=== PATIENT | female | born 1965 | race Caucasian/White ===

== ENCOUNTER 2024-04-29 07:11 | Day surgery (SDC) | payer OTHER, SELFPAY ==
[2024-04-29] MEDS: LACTATED RINGERS 1,000 ML 42 ML IV (07:29)
[2024-04-29 07:35] VITALS: BP 118/76; PULSE 76; RESP 16; TEMP 36.3; O2SAT 96
--- NOTE | 2024-04-29 08:17 | P.HP_ITS ---
History of Present Illness History of Present Illness Date Patient Seen: 04/29/24 Time Patient Seen: 08:17 Chief complaint: Screening Colonoscopy Narrative: Last scope several years ago. No symptoms, no family history for colon cancer [facility] Medical History Cervical spine pain Depression Anxiety Lumbar spine pain Surgical History Status post loop electrosurgical excision procedure (LEEP) of cervix (03/28/08) Family History Mother Diabetes mellitus Breast cancer Heart disease Father Alcoholism Grandmother Pacemaker Social History marital status: Smoking Status: Never smoker alcohol intake: current substance use type: does not use Meds Home Medications and Allergies Home Medications Medication Instructions Recorded Confirmed Type bupropion HCl 200 mg tablet,12 hr 200 mg PO BID #60 tabs 11/16/18 04/29/24 Rx sustained-release fluticasone propionate 50 2 spray intranasal BID #9.9 grams 11/16/18 04/29/24 Rx mcg/actuation nasal spray,suspension hydroxyzine pamoate 25 mg capsule 25 mg PO BEDTIME PRN insomnia #20 11/16/18 04/29/24 Rx caps olopatadine 0.1 % eye drops 1 drop EYE-BOTH BID #5 mL 11/16/18 04/29/24 Rx (Patanol) zolpidem 5 mg tablet 5 mg PO BEDTIME PRN insomnia #20 11/16/18 04/29/24 Rx tabs peg 3350-sod sulf,blqzh-ukr-bzw 1,000 ml PO DIRECTED #2,000 mL 03/18/24 04/29/24 Rx 178.7-7.3-0.5-1.12-0.9 gram oral soln (Suflave) Allergies Allergy/AdvReac Type Severity Reaction Status Date / Time No Known Drug Allergies Allergy Verified 11/16/18 15:35 Review of Systems Review of Systems ROS: Yes All systems reviewed with the patient and are negative except as ot herwise documented Exam Vital Signs (past 8 hours): - 04/29/24 07:35 Temperature 97.4 F L Pulse Rate 76 Respiratory Rate 16 Blood Pressure 118/76 Pulse Oximetry 96 Oxygen Delivery Method Room Air Oxygen Delivery Method Room Air Const General: cooperative, healthy appearing and comfortable Nutritional Appearance: average body habitus HENMT Head: normocephalic and atraumatic Ears: hearing grossly normal bilaterally Eyes Periorbital: periorbital findings normal Sclera: sclerae normal Neck Neck: trachea midline Resp Effort & Inspection: normal respiratory effort and able to speak in complete sentences Cardio Rate: regular rate Rhythm: regular rhythm GI Palpation: soft and No tender Skin General: turgor normal and No atrophy Neuro General: patient alert, patient awake and patient oriented x3 Cognition: normal cognition Psych Appearance: grossly normal Mental Status: mental status grossly normal Judgment: judgment good Assessment & Plan Assessment & Plan narrative: colon cancer screening with colonoscopy using anesthesia Time-Based Coding :: [TOTAL MINUTES] spent with patient and on the chart (including review of chart, obtaining history, exam, reviewing outside data, placing orders, documenting exam and treatment plan, and counseling patient) on [DATE].
--- NOTE | 2024-04-29 08:51 | PM.OP.COLON ---
Operative Date/Time/Diagnoses Date of procedure: 04/29/24 Time of procedure: 08:51 Pre-op diagnosis: Colon cancer screening Post-op diagnosis: same Procedure & Clinicians Study performed: Colonoscopy with anesthesia Same procedure as scheduled: Yes Indications: Colon cancer screening Surgeon: Monse Girard Procedure Notes Procedure in detail: Preop diagnosis: Colon cancer screening Postop diagnosis: Same Operative procedure: Colonoscopy with anesthesia Surgeon: Fany Girard MD Findings: Normal colonoscopy. No diverticulosis, no polyps, however poor bowel prep Procedure: Patient placed in a lateral position. Rectal exam performed showing normal tone no masses. Colonoscope inserted into the rectum and advanced to ileocecal valve with minimal difficulty. Insufflation extraction scope and the above findings. Retroflex was included in the rectum. Impression: Normal colonoscopy. No polyps identified. Plan: Repeat colonoscopy in 10 years unless otherwise indicated by change in clinical condition Specimen(s): none sent Complications: none Post-procedure Recommendations: Colonoscopy in 10 years
[2024-04-29 08:54] VITALS: BP 95/61; PULSE 74; RESP 13; TEMP 36.4; O2SAT 98
[2024-04-29 09:00] VITALS: BP 101/59; PULSE 73; RESP 20; O2SAT 96
[2024-04-29 09:08] VITALS: BP 102/63; PULSE 69; RESP 15; TEMP 37.2; O2SAT 98
== END 2024-04-29 09:30 | disposition home or self-care (01) ==
PROVIDERS: Family Provider Family Medicine; PCP Internal Medicine; Referring Provider Surgery; Visit Provider Surgery
PROC: 0DJD8ZZ Inspection of Lower Intestinal Tract, Via Natural or Artificial Opening Endoscopic (ICD-10-PCS; CPT 45378; principal; 2024-04-29 08:15)
DX: Z12.11 Encounter for screening for malignant neoplasm of colon (principal)
CPT/HCPCS: 45378; J2704